=== PATIENT | male | born 1970 | race Caucasian/White ===

== ENCOUNTER 2025-05-06 16:12 | Inpatient (IN) | payer OTHER, SELFPAY ==
[2025-05-06] VITALS (49 sets, daily range): BP systolic 100–200; BP diastolic 37–123; BMI 37.1; BMI 37.3
--- NOTE | 2025-05-06 13:43 | ED.GENMED ---
History of Present Illness
General
Chief Complaint: Chest Pain
Time Seen by Provider: 05/06/25 13:26
History of Present Illness
History of Present Illness:
54-year-old male with no significant past medical history presents to the emergency department for evaluation of exertional chest pain occurring for the past 2 days. Notes that yesterday he first developed symptoms while walking several miles
through [place] but felt it was related to the heat however today states he walked '100 to 200 yards' before symptoms began. The symptoms rapidly resolve when he rests. Currently no pain at present. Has previously been evaluated by
cardiology as an outpatient and has stated history of normal echocardiogram and stress test approximately 3 to 4 years ago but this was outside the [facility] system and I do not have access to records. Denies any recent fevers or chills. No
shortness of breath or coughing.
Review of Systems
Review of Systems
Allergies reviewed?: Yes
All Other Systems: ROS reviewed and negative except as documented in HPI and ROS
Phy Exam
Physical Exam
Physical Exam:
GEN: Well appearing, NAD, WDWN
HEENT: Oral mucosa moist, no scleral icterus
Cardiac: Regular rate And rhythm, no murmurs
Lung: No respiratory distress, no tachypnea, Lungs clear to auscultation bilaterally
MSK: No gross deformity or injuries
Skin: Good color, no pallor or jaundice, no rashes
Neuro: AO x3, moves all extremities freely
Psych: Calm, cooperative
Scores
Heart Score for Chest Pain Patients
STEMI patient?: No
History: Highly Suspicious
ECG: Nonspecific Repolarization
Age: >45 - <65 years
Risk Factors: 1 or 2 Risk Factors
Troponin: >/= 3 x Normal Limit
Heart Score for Chest Pain Patients: 7
Heart Score Risk: 72.7 % MACE over next 6 weeks
Course
Orders/Labs/Results
Orders:
Orders
05/06/25 12:05
EKG [Electrocardiogram (*1)] Urgent
Reason for Study: Chest Pain
EKG- Treatment ONCE
05/06/25 13:42
CR Chest - 2 Views Urgent
Comment:
Reason For Exam: chest pain
05/06/25 14:18
Complete Blood Count/No Diff Urgent
Comprehensive Metabolic Panel Urgent
Troponin I Urgent
05/06/25 15:08
PTT Urgent
Comment: Obtain baseline before beginning heparin infusion if not already collected
Aspirin Chewable [Low Strength Aspirin] 324 mg PO NOW STA
Heparin 4,000 units IV NOW STA
Nursing to Place Non Medication Order As Directed
Physician Order: PTT 6 hours after initial start of Heparin infusion
Above order entered?: Yes
05/06/25 15:15
Heparin 03683 Units/250 ml 25,000 units in 250 ml IV PER PROTOCOL
Weight to be used for heparin protocol in kilograms (kg):: 104.326
Protocol:: Cardiac Tx/Acute Coronary
PTT Goal Range to be used:: PTT 73 to 111 seconds
Order type:: Initial
INITIAL Infusion Dose (UNITS/KG/hr) & then follow protocol:: 15 units/kg/hr
Infusion Dose in UNITS/hr & then follow protocol (UNITS/hr):: 1,500
INFUSION RATE in mL/hr & then follow protocol (mL/hr):: 15
PTT less than or equal to 64 seconds:: Increase rate by 200 units/hr (+ 2 mL/hr)
PTT 64.1 to 72.9 seconds:: Increase rate by 100 units/hr (+ 1 mL/hr)
PTT 73 to 111 seconds:: Target Range. No change in rate.
PTT 111.1 to 130.9 seconds:: Decrease rate by 100 units/hr (- 1 mL/hr)
PTT 131 to 199.9 seconds:: HOLD for 1 hr. Then decrease rate by 200 units/hr (- 2 mL/hr)
PTT greater than or equal to 200 seconds:: HOLD for 2 hrs & Notify Provider. Then decrease by 200 units/hr (-
2 mL/hr)
Lab follow-up:: Each change, PTT q6h until 2 consecutive are therapeutic. Then PTT
daily.
Abnormal Lab Results
05/06/25
14:18
Creatinine 0.6 L mg/dL
(0.7-1.3)
Glucose 169 H mg/dl
(70-99)
AST 74 H U/L
(17-59)
ALT 70 H U/L
(0-50)
Troponin I 2.570 H* ng/ml
05/06/25 14:18
05/06/25 14:18
Vital Signs
Initial and Last Documented VS:
Initial Vital Signs
Temp Pulse Resp BP Pulse Ox
98.5 F 94 18 168/123 96
05/06/25 12:06 05/06/25 12:06 05/06/25 12:06 05/06/25 12:06 05/06/25 12:06
Last Documented Vital Signs
Temp Pulse Resp BP Pulse Ox
98.6 F 89 19 173/98 95
05/06/25 14:21 05/06/25 14:22 05/06/25 14:22 05/06/25 14:21 05/06/25 14:22
MDM/Problems Addressed
MDM/Problems Addressed:
Patient found to have severely elevated troponin suggestive of NSTEMI. No active pain at present. Will admit to the hospitalist service for further management
Comment
Comment:
EKG independently interpreted by me shows normal sinus rhythm with changes compatible with LVH laterally
*Pulse Oximetry
SaO2: 96
Oxygen Mode of Delivery: Room air
Patient hypoxic: no
*Critical Care Note
Total Time (30-74mins, 75-104mins- exclusive of procedures): 30 minutes
comment:
Critical care time: 30 min
Critical care time was exclusive of: Separately billable procedures, treating other patients, and teaching time
Critical care was necessary to treat or prevent imminent or life-threatening deterioration of the following conditions: NSTEMI
Critical care time spent personally by me on the following activities:
[x] Review of old charts
[x] Obtaining history from patient or surrogate
[x] Ordering and review of the laboratory studies
[x] Ordering and review of radiographic studies
[x] Ordering and performing treatments and interventions
[x] Patient patient's response to treatment
[x] Development of treatment plan with patient or surrogate
ED Attending Note
-
Portions of this chart may have been created with voice recognition software.� Occasional wrong word or��sound alike� substitutions may have occurred due to the inherent limitations of voice recognition software.
Discharge Plan
Departure
Patient Disposition: Admit
Date of Disposition: 05/06/25
Time of Disposition: 15:20
Admit to: IVU
Presentation/result/management discussed w/ accepting MD/DO: Hospitalist
Discharge Problem:
Non-ST elevation KS (NSTEMI)
Prescriptions:
No Action
No Current Medications
0
Referrals:
UNKNOWN - PT NOT,INTERVIEWE [Family Provider]
Interventions
Interventions:
*Risk Screen - Suicide Last Done: 05/06/25 12:06
*General Assessment Last Done: 05/06/25 12:06
*Neglect/Abuse Screening Last Done: 05/06/25 14:22
*ED- Fall Risk Assessment Last Done: 05/06/25 14:22
*ED COVID-19 Vaccine History Last Done: 05/06/25 14:22
ED- Cardiac Assessment Last Done: 05/06/25 14:22
Discharge Date and Time
Print Language: IVORIAN
[2025-05-06 14:31] LABS: Hematocrit 44.0 % (39.0-52.0); Hemoglobin 15.3 g/dL (13.0-18.0); Mean Corp Hgb Conc. 34.8 g/dL (33.0-37.0); Mean Corpuscular Volume 81.2 fL (80.0-94.0); Platelet Count 153 10^3/uL (130-400); Red Cell Dist. Width 12.8 % (11.5-14.5)
[2025-05-06 14:52] LABS: ALT (SGPT) 70 U/L (0-50); AST (SGOT) 74 U/L (17-59); Albumin 4.7 g/dl (3.5-5.0); Alkaline Phosphatase 66 U/L (38-126); Blood Urea Nitrogen 14 mg/dl (9-20); Calcium 9.4 mg/dl (8.4-10.2); Carbon Dioxide 27 mmol/L (22-30); Chloride 107 mmol/L (98-107); Estimated Creatinine Clearance > 125 ml/min; Glucose 169 mg/dl (70-99); Potassium 4.1 mmol/L (3.5-5.1); Sodium 139 mmol/L (135-145); Total Protein 7.3 g/dl (6.3-8.2); eGFR > 60.00
[2025-05-06 15:08] LABS: Troponin I 2.570 ng/ml
[2025-05-06] MEDS: LOW STRENGTH ASPIRIN 324 MG PO (15:20)
[2025-05-06] MEDS: HEPARIN 4000 UNITS IV (15:20)
[2025-05-06] MEDS: HEPARIN 25000 UNITS/250 ML IV (15:23)
[2025-05-06 15:33] LABS: APTT 29.7 Sec (23.4-35.0)
--- NOTE | 2025-05-06 16:03 | HPS.HSE ---
Family Physician
-
Family Physician: INTERVIEWE UNKNOWN - PT NOT
Chief Complaint
-
Chest pain, shortness of breath
History of Present Illness
54-year-old male with history of obesity came to the hospital with exertional chest pain and shortness of breath. Per patient his symptoms started 2 days ago. Denies any sick contacts. Denies any fever, chills. Denies any abdominal pain, nausea,
vomiting, constipation. Per patient he did had stress test done 3 to 4 years ago which was normal. Per patient his symptoms resolves with rest. Currently denies any discomfort.
Medical History
Past Medical History
Past Medical History: Reports None
Past Surgical History: Reports None
Social History
Tobacco: Non-smoker
Alcohol: None
Family History
Family History: Not pertinent
Allergies / Home Medications
Allergies reflects when Allergies were last updated in [facility].
Home Medications with original date entered in [facility]
Allergy/Medication List:
Allergies
Allergy/AdvReac Type Severity Reaction Status Date / Time
No Known Allergies Allergy Verified 05/06/25 12:05
Home Medications
CoQ-10 1 cap PO NOON 05/06/25
cholecalciferol (vitamin D3) 1 tab PO NOON 05/06/25
naproxen sodium 220 mg tablet (Aleve) 440 mg PO BID PRN mild pain 05/06/25
therapeutic multivitamin 1 tab PO NOON 05/06/25
Review of Systems
-
History Source: Patient
A 12 point ROS was completed and negative except as noted: Yes
Cardiac: Reports Chest Pain
Physical Exam
Vital Signs
Vital Signs
Temp Pulse Resp BP Pulse Ox
98.6 F 89 19 173/98 95
05/06/25 14:21 05/06/25 14:22 05/06/25 14:22 05/06/25 14:21 05/06/25 14:22
Physical Exam
General: Well Nourished and No Apparent Distress
HEENT: NormoCephalic, Anicteric and Moist mucous membranes
Respiratory: Clear and Non Labored Respirations; No Wheezes
Cardiac: S1/S2 and Regular Rhythm
Breast: Deferred by me
GI: Soft, Non Tender, Non Distended and Normal Bowel Sounds
Rectal: Deferred by Provider
Genito-urinary: No Bautista
Musculoskeletal: No Edema
Neuro: Awake, Alert, Oriented and AO x 3
Psych: Calm and Intact Judgment/Insight
Laboratory Results
-
05/06/25 14:18
Laboratory Results
APTT 29.7 Sec (23.4-35.0) 05/06/25 15:16
Total Bilirubin 0.9 mg/dl (0.2-1.3) 05/06/25 14:18
AST 74 U/L (17-59) H 05/06/25 14:18
ALT 70 U/L (0-50) H 05/06/25 14:18
Alkaline Phosphatase 66 U/L (38-126) 05/06/25 14:18
Troponin I 2.570 ng/ml H* 05/06/25 14:18
Data Reviewed
-
Lab Data: Labs Reviewed by me, Discussed with Physician, Discussed with Patient and Discussed with Family
Impression/Plan
-
Chest pain, dyspnea on exertion likely secondary to NSTEMI
Admit to IVU
Full dose aspirin given, start heparin drip. Continue with heparin drip
Cardiology consulted
Check echo
will need cardiac catheterization, defer to cardiology
Trend serial troponin and EKG
Check A1c, lipid profile
Lopressor
Elevated LFTs
Likely secondary to NSTEMI
Monitor
Obesity
DVT prophylax
Heparin
Full code
I spent a total of 76 minutes with the patient or on the floor. More than 50% of this time involved counseling and coordination of care.
--- NOTE | 2025-05-06 17:00 | EDRN ---
this RN called the receiving IVU nurse Wanda BARR and gave verbal report
[2025-05-06] MEDS: LOPRESSOR 12.5 MG PO ×2 (18:17→20:42)
[2025-05-06] MEDS: LOPRESSOR 5 MG IV (18:44)
--- NOTE | 2025-05-06 19:16 | PTCARENOTE ---
Received patient from the ED at 1800. IV heparin infusing at 1500 units/hr. Patient denies any chest pain or sob since arriving to the hospital. Oriented to the room and plan of care. BP elevated 194/107, patient received PO dose of metoprolol as
ordered. TT to Dr. Miller who ordered an additional 5mg IV lopressor which was given. EKG done and second troponin sent to the lab. Patient instructed to call with any complaints of chest pain, call lay in reach, family at the bedside.
[2025-05-06 19:21] LABS: Troponin I 2.880 ng/ml
[2025-05-06] MEDS: NITROGLYCERIN PREMIX 250 IV (20:23)
[2025-05-06] MEDS: TYLENOL 650 MG PO (20:58)
--- NOTE | 2025-05-06 21:12 | CON.CAR ---
Consultation
Consultation Request
Date/Time Consultation Requested: 05/06/2025
Date/Time Consultation Performed: 05/06/2025
Requesting Provider: Dr. Miller
Performing Provider: Dr. Hughes
Reason for Consultation: Chest pain/NSTEMI
Medical History
-
Chief Complaint: Chest pain
History of Present Illness:
54-year-old male with untreated hypertension, obesity, and family history of heart disease (mother and father) presenting with chest pain. The patient states that he was walking around with his family in [place] and began to experience
midsternal chest pressure and dyspnea 2 days ago. Due to recurrence of symptoms, patient presented to the ER. The chest pain occurs with exertion and is alleviated with rest. He denies palpitations, syncopal events, or lower extremity swelling.
The patient presented with hypertensive emergency; peak blood pressure values of 190/123 mmHg.
Past Medical History
Past Medical History: HTN (Untreated)
Past Surgical History: Orthopedic (Scoliosis correction surgery at the age of 13)
Social History
Tobacco: Non-Smoker
Alcohol: None
Drug: None
Personal:
Living: With Family
Family History
Family History: CAD (Mother had CAD, father had CHF and a pacemaker)
Allergies / Home Medications
Allergy/AdvReac Type Severity Reaction Status Date / Time
No Known Allergies Allergy Verified 05/06/25 12:05
�Medication �Instructions �Recorded �Confirmed �Type
CoQ-10 1 cap PO NOON 05/06/25 05/06/25 History
cholecalciferol (vitamin D3) 1 tab PO NOON 05/06/25 05/06/25 History
naproxen sodium 220 mg tablet 440 mg PO BID PRN mild pain 05/06/25 05/06/25 History
(Aleve)
therapeutic multivitamin 1 tab PO NOON 05/06/25 05/06/25 History
Review of Systems
-
History Source: Patient
All other systems: Negative unless noted
Physical Exam
Vital Signs
Temp Pulse Resp BP Pulse Ox
98.1 F 87 20 162/97 97
05/06/25 17:43 05/06/25 21:10 05/06/25 17:43 05/06/25 21:10 05/06/25 17:43
Lab Results
05/06/25 16:00
05/06/25 14:18
Troponin I 2.880 ng/ml H* 05/06/25 18:39
Physical Exam
General: No Apparent Distress and Comfortable
HEENT: Anicteric
Respiratory: Clear
Cardiac: S1/S2 and Regular Rhythm
Breast: N/A
GI: Soft
Rectal: Deferred by Provider
Musculoskeletal: No Edema
Skin: Warm and Dry
Neuro: AO x 3
Psych: Calm
Impression / Plan
-
54-year-old male with untreated hypertension, obesity, and family history of heart disease (mother and father) presenting with chest pain. The patient states that he was walking around with his family in [place] and began to experience
midsternal chest pressure and dyspnea 2 days ago. Due to recurrence of symptoms, patient presented to the ER. The chest pain occurs with exertion and is alleviated with rest. He denies palpitations, syncopal events, or lower extremity swelling.
The patient presented with hypertensive emergency; peak blood pressure values of 190/123 mmHg.
CAD/NSTEMI
- Cardiac troponin 2.570--> 2.880
- Stat bedside echocardiogram revealed normal LVEF and no obvious wall motion abnormalities; possible mild basal inferior hypokinesis cannot be excluded.
- Continue heparin drip.
- Will start a nitroglycerin drip.
- Has been given full-dose aspirin.
- Will start rosuvastatin 20 mg daily.
- Will place on Toprol-XL 25 mg daily.
- Check lipid panel in AM.
- Check hemoglobin A1c in AM.
- Patient will undergo cardiac catheterization; timing yet to be determined--case discussed with Interventional Cardiology.
- supervisor sample preparation.
- NPO after midnight, in case patient needs to go to the [facility].
Hypertensive emergency:
- Nitroglycerin drip as above.
- Will start lisinopril 10 mg daily.
- Toprol-XL 25 mg daily as above.
Obesity:
- Weight loss and regular exercise recommended.
Data Reviewed
-
EKG: Tracing Personally Visualized and interpreted (Sinus rhythm at 90 bpm with LVH with repolarization abnormality; septal infarct.)
Radiology: Report Reviewed by me (Chest x-ray: No acute cardiopulmonary abnormality)
Labs: Labs Reviewed by me, Discussed with Physician (Primary Hospitalist), Discussed with Nurse, Discussed with Patient and Discussed with Family ( and daughter at bedside)
--- NOTE | 2025-05-06 21:14 | PTCARENOTE ---
Notified Dr. Hughes of EKG changes on 1823 serial EKG as well as increase in troponin to 2.880, BP also elevated (SBP 190's) Pt. denied any chest pain/discomfort. Dr. Hughes came to bedside to evaluate & bedside echo initiated. Nitro gtt
ordered and started. EKG repeated per Dr. Hughes showing STEMI. - pt. still chest pain free. Dr. Hughes notified of EKG results and case discussed with interventionalist by him, no need to activate clinical laboratory technologist at this time. Currently titrating
nitro to meet BP parameters. Pt only. complaining of a headache for which Tylenol was effective. Latest EKG not reading STEMI anymore; shown to Dr. Hughes - no need to repeat until AM unless pt. has chest pain. Pt. resting in bed quietly.
[2025-05-06] MEDS: ZESTRIL 10 MG PO (21:36)
[2025-05-06 21:48] LABS: APTT 72.3 Sec (23.4-35.0)
[2025-05-06 22:09] LABS: Troponin I 2.700 ng/ml
[2025-05-07] VITALS (40 sets, daily range): BP systolic 98–174; BP diastolic 37–94; BMI 37.3
[2025-05-07 04:45] LABS: Hematocrit 42.3 % (39.0-52.0); Hemoglobin 14.3 g/dL (13.0-18.0); Mean Corp Hgb Conc. 33.8 g/dL (33.0-37.0); Mean Corpuscular Volume 82.1 fL (80.0-94.0); Nucleated Red Blood Cells % 0 % (-); Platelet Count 156 10^3/uL (130-400); Red Cell Dist. Width 12.7 % (11.5-14.5)
[2025-05-07 04:55] LABS: APTT 96.1 Sec (23.4-35.0)
[2025-05-07 05:43] LABS: Troponin I 2.050 ng/ml
[2025-05-07] MEDS: TYLENOL 650 MG PO ×2 (05:46→20:57)
[2025-05-07] MEDS: HEPARIN 25000 UNITS/250 ML IV ×2 (05:47→20:54)
--- NOTE | 2025-05-07 05:55 | PTCARENOTE ---
Pt. complained of first right lower arm tingling/ 'sort of numbness' and then bilateral finger tingling at 0405. BP 136/55, HR 60's-70's, pulse ox 95% RA. No chest pain. Nitro on and running at 30 mcg/min (ordered to stay at this rate earlier by
EDOUARD Marie). Pt. had no other symptoms. Neuro check WNL. Ed notified of symptoms and instructed to increase nitro gtt to first 40 mcg/min and then 50 mcg/min. Dose increased as ordered, SBP low 100's-120's. Pt. currently reports tingling is
much improved but still mildly present in bilateral fingers.
[2025-05-07 05:59] LABS: ALT (SGPT) 66 U/L (0-50); AST (SGOT) 71 U/L (17-59); Albumin 4.2 g/dl (3.5-5.0); Alkaline Phosphatase 64 U/L (38-126); Blood Urea Nitrogen 15 mg/dl (9-20); Calcium 9.1 mg/dl (8.4-10.2); Carbon Dioxide 22 mmol/L (22-30); Chloride 106 mmol/L (98-107); Estimated Creatinine Clearance > 125 ml/min; Glucose 172 mg/dl (70-99); HDL Cholesterol 37 mg/dl; LDL Cholesterol, Calculated 141 mg/dl; Potassium 4.2 mmol/L (3.5-5.1); Sodium 136 mmol/L (135-145); Total Protein 6.6 g/dl (6.3-8.2); Very Low Density Lipoprotein 49 mg/dl (0-30); eGFR > 60.00
[2025-05-07] MEDS: ZESTRIL 10 MG PO (09:11)
[2025-05-07] MEDS: LOW STRENGTH ASPIRIN 81 MG PO (09:11)
[2025-05-07] MEDS: TOPROL XL 25 MG PO ×2 (09:11→23:14)
[2025-05-07] MEDS: FLUSH (NSS) 1 FLUSH IV (09:12)
--- NOTE | 2025-05-07 10:22 | PTCARENOTE ---
Patient assisted this morning from the bathroom to the chair. Denies any chest pain or sob, states tingling in his fingers is 95% gone. IV heparin infusing at 1600 units/hr. NTG gtt was infusing at 50mcg/min, given AM dose of meds and BP much more
controlled. Patient seen by Dr. Hughes and ok to begin tapering NTG gtt. Plan for cardiac cath tomorrow, patient aware and encouraged to order breakfast. Call lay in reach.
[2025-05-07 10:26] LABS: Glycohemoglobin (HgbA1c) 8.7 % (4.0-5.6)
[2025-05-07 11:10] LABS: APTT 93.0 Sec (23.4-35.0)
--- NOTE | 2025-05-07 11:15 | W.PN.CD ---
Today's Communication / Plan
-
- Continue heparin drip.
- Wean nitroglycerin drip.
- Continue aspirin.
- Started on rosuvastatin 40 mg daily.
- Started on Toprol-XL 25 mg daily.
- Patient will undergo cardiac catheterization tomorrow morning.
- NPO after midnight.
- Hemoglobin A1c 8.7%; treatment/management as per primary team.
Impression / Plan
-
54-year-old male with untreated hypertension, obesity, and family history of heart disease (mother and father) presenting with chest pain. The patient states that he was walking around with his family in [place] and began to experience
midsternal chest pressure and dyspnea 2 days ago. Due to recurrence of symptoms, patient presented to the ER. The chest pain occurs with exertion and is alleviated with rest. He denies palpitations, syncopal events, or lower extremity swelling.
The patient presented with hypertensive emergency; peak blood pressure values of 190/123 mmHg.
CAD/NSTEMI
- Cardiac troponin 2.570--> 2.880--> 2.700--> 2.050
- Echocardiogram revealed normal LVEF; possible mild basal inferior hypokinesis cannot be excluded.
-Denies recurrent angina at this time.
- Continue heparin drip.
- Wean nitroglycerin drip.
- Continue aspirin.
- Started on rosuvastatin 40 mg daily.
- Started on Toprol-XL 25 mg daily.
- Patient will undergo cardiac catheterization tomorrow morning.
- monitoring and evaluation advisor.
- NPO after midnight.
Hypertensive emergency:
- Blood pressure now controlled.
- Wean off nitroglycerin drip.
- Started on lisinopril 10 mg daily.
- Continue Toprol-XL 25 mg daily as above.
Hyperlipidemia: Untreated
- Total cholesterol 227, LDL 141, HDL 37, VLDL 49, triglycerides 246.
- Started on rosuvastatin 40 mg daily; goal LDL is less than 55.
Diabetes: New official diagnosis
- Hemoglobin A1c 8.7%.
- Treatment/management as per primary team.
Obesity:
- Weight loss and regular exercise recommended.
Physical Exam
Vital Signs/Labs
Vital Signs
Temp Pulse Resp BP Pulse Ox
98.2 F 79 20 108/74 95
05/07/25 07:06 05/07/25 09:11 05/07/25 07:06 05/07/25 09:11 05/07/25 07:06
05/06/25 05/07/25 05/08/25
06:59 06:59 06:59
Actual Weight 104.9 kg
05/07/25 04:32
05/07/25 04:32
APTT 96.1 Sec (23.4-35.0) H 05/07/25 04:32
Triglycerides 246 mg/dl (10-149) H 05/07/25 04:32
LDL Cholesterol, Calc 141 mg/dl 05/07/25 04:32
VLDL Cholesterol, Calc 49 mg/dl (0-30) H 05/07/25 04:32
HDL Cholesterol 37 mg/dl 05/07/25 04:32
LAB Results
05/06/25 05/06/25 05/06/25
14:18 18:39 21:24
Troponin I 2.570 H* 2.880 H* 2.700 H*
05/07/25 05/07/25
04:32 06:00
Troponin I 2.050 H* Cancelled
Physical Exam
Constitutional: No acute distress and Comfortable
EENT: Anicteric and Moist mucous membranes
Cardiovascular: Rhythm & rate is regular, Pedal edema is absent, Systolic murmur absent and S1S2 is normal
Respiratory: Respiratory effort normal and Lungs clear to auscul.
GI: Soft
Neuro/Psych: AO x 3
Other: Skin (Warm, dry, intact)
Data Reviewed
-
Date of Service: May 07, 2025
EKG: Tracing Personally Visualized and interpreted (Telemetry: Sinus rhythm)
Echo: Tracing Personally Visualized and interpreted (Normal LVEF 60-65%)
Medical Tests (PFT, Pathology etc): Discussed with Physician (Primary Hospitalist), Discussed with Nurse and Discussed with Patient
Labs: Labs Reviewed by me
--- NOTE | 2025-05-07 11:58 | W.PN.HOSP.TC ---
Today's Communication/Plan
-
Monitor vital signs see plan
N.p.o. past midnight for cardiac cath tomorrow
Continue heparin drip
Wean nitro drip
Continue lisinopril, Toprol
Insulin sliding scale, Accu-Cheks
Assessment / Plan
Assessment / Plan
General: Well Nourished and No Apparent Distress
HEENT: NormoCephalic, Anicteric and Moist mucous membranes
Respiratory: Clear and Non Labored Respirations; No Wheezes
Cardiac: S1/S2 and Regular Rhythm
GI: Soft, Non Tender, Non Distended and Normal Bowel Sounds
Genito-urinary: No Bautista
Musculoskeletal: No Edema
Neuro: Awake, Alert, Oriented and AO x 3
Psych: Calm and Intact Judgment/Insight
Chest pain, dyspnea on exertion likely secondary to NSTEMI
cw heparin drip. ASA
Cardiology following
Echo 05/06 with preserved EF however possible basal inferior hypokinesis
Cardiac cath 05/08. N.p.o. past midnight
Check A1c, lipid profile
Lopressor
Trop peaked 2.8
Hypertensive on admission, now on nitro drip. Wean
Also started on metoprolol
Hypertensive emergency
Blood pressure now improving on nitro drip, wean nitro drip
Continue Toprol, lisinopril
Newly diagnosed diabetes mellitus
A1c 8.7, diabetes education
Accu-Chek, insulin/scale
Will need p.o. meds prior to discharge
Hyperlipidemia
Now started rosuvastatin
Elevated LFTs
Likely secondary to NSTEMI
Monitor
Obesity
DVT prophylax
Heparin
Full code
I spent a total of 52 minutes with the patient or on the floor. More than 50% of this time involved counseling and coordination of care.
Anticipated Discharge: 24 - 48 hours
Subjective/Interval History
-
Date of Service: May 07, 2025
denies sob
Objective Data
-
Labs:
Laboratory Results
05/07/25 05/07/25
04:32 10:48
WBC 5.9
Hgb 14.3
Hct 42.3
Plt Count 156
APTT 96.1 H 93.0 H
Sodium 136
Potassium 4.2
Chloride 106
Carbon Dioxide 22
BUN 15
Creatinine 0.6 L
Glucose 172 H
Calcium 9.1
Total Bilirubin 0.8
AST 71 H
ALT 66 H
Alkaline Phosphatase 64
Vital Signs:
Vital Signs
Temp Pulse Resp BP Pulse Ox
98.7 F 79 20 108/74 97
05/07/25 11:55 05/07/25 09:11 05/07/25 11:55 05/07/25 09:11 05/07/25 11:55
I&O
05/06/25 05/07/25 05/08/25
06:59 06:59 06:59
Intake Total 240 / 240
Output Total 400 / 400
Balance -160 / -160
[2025-05-07] MEDS: CRESTOR 40 MG PO (12:26)
--- NOTE | 2025-05-07 12:33 | PTCARENOTE ---
Patient's HgA1C resulted at 8.7. Patient notified of result and meaning and for need to have accu checks AC and HS with [facility], development educator consulted.
--- NOTE | 2025-05-07 14:39 | PTCARENOTE ---
NTG tapered to off as per order and ok with Dr. Hughes. BP presently 121/67, denies any chest pain or sob, IV heparin infusing at therapeutic level, 1600 units/hr. Patient sitting oob in the chair, family in visiting.
[2025-05-07 16:50] LABS: Glucose - Point of Care 194 mg/dl (70-99)
[2025-05-07] MEDS: NOVOLOG FLEXPEN-LOW RESISTANCE 1 UNITS SC (18:22)
[2025-05-07 21:13] LABS: Glucose - Point of Care 245 mg/dl (70-99)
[2025-05-08] VITALS (24 sets, daily range): BP systolic 129–194; BP diastolic 50–97; BMI 37.4
--- NOTE | 2025-05-08 02:57 | PTCARENOTE ---
Pt. in NSR on the monitor, denies any chest pain. Heparin infusing at 1600 units/hr. BP coming back up post nitro being weaned off on day shift, 174/84 at 2300. CV- PA Ed Breann notified, order for additional Toprol 25 mg obtained and given.
Pt. for cardiac cath later this morning, NPO, plan of care discussed with pt. Currently resting quietly.
[2025-05-08 03:55] LABS: Hematocrit 43.0 % (39.0-52.0); Hemoglobin 14.7 g/dL (13.0-18.0); Mean Corp Hgb Conc. 34.2 g/dL (33.0-37.0); Mean Corpuscular Volume 81.3 fL (80.0-94.0); Nucleated Red Blood Cells % 0 % (-); Platelet Count 149 10^3/uL (130-400); Red Cell Dist. Width 12.7 % (11.5-14.5)
[2025-05-08 04:01] LABS: APTT 96.4 Sec (23.4-35.0)
[2025-05-08] MEDS: APRESOLINE 10 MG IV (04:03)
[2025-05-08 04:35] LABS: ALT (SGPT) 57 U/L (0-50); AST (SGOT) 49 U/L (17-59); Albumin 4.4 g/dl (3.5-5.0); Alkaline Phosphatase 69 U/L (38-126); Blood Urea Nitrogen 14 mg/dl (9-20); Calcium 9.2 mg/dl (8.4-10.2); Carbon Dioxide 25 mmol/L (22-30); Chloride 108 mmol/L (98-107); Estimated Creatinine Clearance > 125 ml/min; Glucose 194 mg/dl (70-99); Potassium 4.3 mmol/L (3.5-5.1); Sodium 138 mmol/L (135-145); Total Protein 6.8 g/dl (6.3-8.2); eGFR > 60.00
--- NOTE | 2025-05-08 05:57 | PTCARENOTE ---
BP still running high after additional Toprol dose: 194/50, 183/65, - order for hydralazine 10 mg IV obtained and given with BP going down to 169/89. Pt. is chest pain free. CV-PA Ed Breann aware, no further medication to be given at this time.
[2025-05-08] MEDS: LOW STRENGTH ASPIRIN 81 MG PO (07:56)
[2025-05-08] MEDS: TYLENOL 650 MG PO (07:56)
[2025-05-08] MEDS: ZESTRIL 10 MG PO (07:56)
[2025-05-08] MEDS: TOPROL XL 25 MG PO (08:54)
--- NOTE | 2025-05-08 09:00 | PTCARENOTE ---
PT AAOx3 w/o complaints of pain; NSR on monitor VSS; RA clear lung sounds; GI and wnl; heparin GTT runnnig waiting for cardiac cath; PT ambulatory & independent in room
[2025-05-08] MEDS: NOVOLOG FLEXPEN-LOW RESISTANCE SC ×2 (09:22→17:01)
--- NOTE | 2025-05-08 11:39 | PN.DE.MGMTRT ---
Insulin Management
- -
05/08/2025: Diabetes Management Consult
54 year old male admitted with chest pain. PMH: CAD/NSTEMI, HTN, HLD, Obesity and new on set T2DM. A1C 8.7%, Cr 0.6, eGFR >60
Pt is awake, alert, oriented, sitting up in chair, offers no complaints. States he has not seen a doctor in years. He has just completed Diabetes Education for monitor instructions with the Diabetes RN. He is currently NPO for cardiac cath today.
Pre-dinner glucose was 194, up to 245@ HS, down to 194 venous @ 3:34 AM. No POC obtained this morning, pre-lunch glucose was 205, pt received 2 units of corrective insulin.
Will start Lantus 15 units @ HS and AC NovoLog 3 units, Cont low corrective while NPO.
Will cont to follow and switch to combination oral regimen and basal insulin at completion of testing and Cardiac cath.
Diabetes History
- -
Type of Diabetes: 2 requiring insulin
Pre-Admission Diabetes Regimen
05/08/25
03:34
Creatinine 0.6 L
Lab Results
Hemoglobin A1c 8.7 % (4.0-5.6) H 05/07/25 04:32
Insulin Pump Settings
IP Diabetes Regimen
05/07/25 05/07/25 05/08/25
16:49 21:12 03:34
Glucose 194 H
POC Glucose 194 H 245 H
Meal type: Breakfast
Meal type: Lunch
Amount consumed: 100%
Patient Education
[2025-05-08] MEDS: NOVOLOG FLEXPEN-LOW RESISTANCE 2 UNITS SC (11:53)
[2025-05-08 11:56] LABS: Glucose - Point of Care 205 mg/dl (70-99)
--- NOTE | 2025-05-08 12:05 | W.PN.CD ---
Today's Communication / Plan
-
Cardiac Catheterization today to clarify coronary anatomy.
D/C metoprolol.
Start carvedilol 6.25 mg BID.
Impression / Plan
-
Impression/Plan: 54-year-old male with untreated hypertension, obesity, and family history of heart disease (mother and father) admitted with hypertensive emergency and NSTEMI.
#CAD/NSTEMI
-Acute, threat to life.
-Cardiac troponin 2.570--> 2.880--> 2.700--> 2.050
-Echocardiogram revealed normal LVEF; possible mild basal inferior hypokinesis cannot be excluded.
-Cardiac catheterization to clarify coronary anatomy today.
-Continue aspirin, heparin gtt, nitro gtt, rosuvastatin.
-Change metoprolol to carvedilol 6.25 mg BID.
#Hypertensive emergency:
-Acute.
-Blood pressure initially controlled, now hypertensive again.
-Wean off nitroglycerin drip.
-Continue lisinopril.
-D/C metoprolol and start carvedilol 6.25 mg BID.
#Hyperlipidemia:
-Chronic, untreated.
-Total cholesterol = 227, LDL = 141, HDL = 37, triglycerides = 246.
-Continue rosuvastatin 40 mg daily; goal LDL < 55.
#Diabetes:
-New diagnosis.
-Hemoglobin A1c 8.7%.
-We will assess need for GLP-1 as an outpatient.
#Obesity:
-Weight loss and regular exercise recommended.
Subjective/Interval History:
Blood pressure remains high, but without chest pain.
HR 80-101.
BP initially improved, now climbing back to 170-190 mmHg.
Hydralazine given.
DATA:
TTE, 05/06/2025:
CONCLUSIONS
LV ejection fraction is 60-65%, by visual assessment. Possible basal inferior
hypokinesis.
Normal right ventricular size and function.
No significant valvular disease.
No prior study available for comparison.
Physical Exam
Vital Signs/Labs
Vital Signs
Temp Pulse Resp BP Pulse Ox
36.8 C 101 18 174/79 96
05/08/25 10:58 05/08/25 07:56 05/08/25 10:58 05/08/25 07:56 05/08/25 10:58
05/07/25 05/08/25 05/09/25
11:59 11:59 11:59
Actual Weight 104.9 kg 105.1 kg
05/08/25 03:34
05/08/25 03:34
APTT 96.4 Sec (23.4-35.0) H 05/08/25 03:34
Triglycerides 246 mg/dl (10-149) H 05/07/25 04:32
LDL Cholesterol, Calc 141 mg/dl 05/07/25 04:32
VLDL Cholesterol, Calc 49 mg/dl (0-30) H 05/07/25 04:32
HDL Cholesterol 37 mg/dl 05/07/25 04:32
LAB Results
05/06/25 05/06/25 05/06/25
14:18 18:39 21:24
Troponin I 2.570 H* 2.880 H* 2.700 H*
05/07/25 05/07/25
04:32 06:00
Troponin I 2.050 H* Cancelled
Physical Exam
Constitutional: No acute distress and Comfortable
EENT: Anicteric and Moist mucous membranes
Cardiovascular: Rhythm & rate is regular, Pedal edema is absent, JVD pressure is normal, S1S2 is normal and Murmur/rub/gallop absent
Respiratory: Respiratory effort normal, Lungs clear to auscul., Wheeze Absent, Crackles Absent and Rhonchi Absent
GI: Soft, Distention absent, Flat, Non tender and Normal bowel sounds
Neuro/Psych: AO x 3
Data Reviewed
-
Date of Service: May 08, 2025
Medical Decision Making: Reviewed Test Results, Independent Historian Assessment and Test Interpretation
EKG: Tracing Personally Visualized and interpreted and Report Reviewed by me
Echo: Report Reviewed by me
X-Ray/CT/US/MRI/NUC/PET: Image Personally Visualized and interpreted and Report Reviewed by me
Labs: Labs Reviewed by me
[2025-05-08] MEDS: HEPARIN 25000 UNITS/250 ML IV (12:20)
--- NOTE | 2025-05-08 12:22 | W.PN.HOSP.TC ---
Today's Communication/Plan
-
Monitor vital signs see plan
Diabetes DU[employer] POLISHER evaluation
N.p.o. for Today
Continue with metoprolol, lisinopril
On heparin drip
Assessment / Plan
Assessment / Plan
General: Well Nourished and No Apparent Distress
HEENT: NormoCephalic, Anicteric and Moist mucous membranes
Respiratory: Clear and Non Labored Respirations; No Wheezes
Cardiac: S1/S2 and Regular Rhythm
GI: Soft, Non Tender, Non Distended and Normal Bowel Sounds
Genito-urinary: No Bautista
Musculoskeletal: No Edema
Neuro: Awake, Alert, Oriented and AO x 3
Psych: Calm and Intact Judgment/Insight
Chest pain, dyspnea on exertion likely secondary to NSTEMI
cw heparin drip. ASA
Cardiology following
Echo 05/06 with preserved EF however possible basal inferior hypokinesis
Cardiac cath 05/08. N.p.o
Check A1c, lipid profile
Lopressor
Trop peaked 2.8
Hypertensive on admission, weaned off nitro drip
Also started on metoprolol
Hypertensive emergency
Blood pressure now improving on nitro drip, wean nitro drip
Continue Toprol, lisinopril
Newly diagnosed diabetes mellitus
A1c 8.7, diabetes education
Accu-Chek, insulin/scale
Will need p.o. meds prior to discharge, diabetes [employer] POL[employer]ER consult
Hyperlipidemia
Now started rosuvastatin
Elevated LFTs
Likely secondary to NSTEMI
Monitor
Obesity
DVT prophylax
Heparin
Full code
I spent a total of 51 minutes with the patient or on the floor. More than 50% of this time involved counseling and coordination of care.
Anticipated Discharge: 24 - 48 hours
Subjective/Interval History
-
Date of Service: May 08, 2025
Denies shortness of breath
Objective Data
-
Labs:
Laboratory Results
05/08/25
03:34
WBC 7.8
Hgb 14.7
Hct 43.0
Plt Count 149
APTT 96.4 H
Sodium 138
Potassium 4.3
Chloride 108 H
Carbon Dioxide 25
BUN 14
Creatinine 0.6 L
Glucose 194 H
Calcium 9.2
Total Bilirubin 0.9
AST 49
ALT 57 H
Alkaline Phosphatase 69
Vital Signs:
Vital Signs
Temp Pulse Resp BP Pulse Ox
98.2 F 101 18 174/79 96
05/08/25 10:58 05/08/25 07:56 05/08/25 10:58 05/08/25 07:56 05/08/25 10:58
I&O
05/07/25 05/08/25 05/09/25
06:59 06:59 06:59
Intake Total 240 / 240 722 / 722
Output Total 400 / 400
Balance -160 / -160 722 / 722
--- NOTE | 2025-05-08 12:30 | PTCARENOTE ---
no change from previous assessment
--- NOTE | 2025-05-08 13:01 | PTCARENOTE ---
05/08/2025
I met with Octavio and his to review diabetes management. He is inpatient with NSTEMI, newly diagnosed with diabetes with an HbA1c of 8.7%.
I educated on physiology of T2D, organ damage, managing with medications, monitoring BG, nutrition, activity, sleep and managing stress. I reinforced signs of hyperglycemia, hypoglycemia and hypoglycemia protocol; BS parameters and recommended HbA1c
goals, glucometer and CGM instructions, glucose tracker, medic alert bracelet and outpatient DSME program. Written material provided.
He admits to being very sedentary, works at home sitting at a desk most of the day. He also states he has a high fat diet.
I educated and reviewed using Contour Next glucometer, member acknowledged understanding with a self demonstration of checking BS with BS reading at 209 during visit. Provided patient with a Contour Next sample kit.
Encouraged patient to follow up with his PCP for post d/c appointment and to monitor medication and blood glucose levels. He does not have a PCP, I referred him back to his health insurance for list of in network providers. Provided list of
endocrinologists if desired, to contact insurance company to verify in network status. Requested prescription sent to pharmacy for test strips and lancets for back up SMBG. Patient verbalized understanding.
--- NOTE | 2025-05-08 13:17 | CM ---
Addendum entered by Deysi Caballero 05/08/25 16:19:
Good Rx coupon from [employer] can get Triagrelor for $31.49 a month.
Addendum entered by Deysi Caballero 05/08/25 16:15:
Received consult to russ Brilinta 90 mg po bid. Brilinta is not on his formulary and will need a prior auth. The telephone number for prior auth is [phone] or you can use cover my meds.
Original Note:
Reviewed chart. Met with Mr. Tabor to review discharge plans. He states prior to admission he resides with his spouse and daughter in a two story home without any steps to enter. He states he has a full flight of steps to get to bedroom/full
bathroom. He states he has a powder room on the first floor. He states prior to admission he was independent with ambulation and adls. He states he does not have any DME in the home. He states he has a prescription plan and uses [facility].
Medical work-up in progress. The discharge plan is to return home with his spouse and daughter when medically stable.
[2025-05-08 15:01] LABS: ACT-LR - POC 334 Seconds (116-155)
[2025-05-08 15:29] LABS: ACT-LR - POC 358 Seconds (116-155)
--- NOTE | 2025-05-08 15:48 | ITS.CL.ANGIO ---
Retail Route Supervisor - Angioplasty
Angioplasty
Procedure Report:
CARDIAC CATHETERIZATION REPORT
Date of Procedure: 05/08/2025
Referring: Zac Hughes M.D.
INDICATION: Non-ST elevation myocardial infarction.
PROCEDURE:
1. Left heart catheterization.
2. Coronary angiography.
3. Successful IFR of the mid LAD.
4. Successful PCI of the proximal margin of OM 1.
A total of 102 minutes of procedural/moderate sedation was utilized. An independent medical instrument cable fabricator was present to assist with and help manage the patient's level of consciousness and physiologic status.
ACCESS:
1. 6 Lithuanian right rate artery using a modified Seldinger technique delete.
CATHETERS:
1. 5 Lithuanian JR4.
2. 5 Lithuanian JL 3.5.
3. 6 Lithuanian EBU 3.75 guiding catheter.
HEMODYNAMIC DATA
Weight (kg): 104.8
AO (s/d/x, mmHg): 136/90/110
LV (s/x mmHg): 136/14
LEFT VENTRICULOGRAPHY: Not performed.
CORONARY ANGIOGRAPHY
Dominance: Left.
Left Main: Normal size, trifurcating vessel. There is no coronary artery disease.
LAD: Normal size vessel giving rise to 2 significant diagonals. There is a 70% lesion in the mid vessel, in between D1 and D2.
Ramus: Small, 1.5 mm vessel. There is no coronary artery disease.
Circumflex: Large size, dominant vessel giving rise to 1 obtuse marginal followed by several smaller posterolateral branches and an LPDA. There is a 90% lesion in the proximal margin of OM1 at the bifurcation of the OM1 into 2 daughter vessels.
RCA: Small size, nondominant vessel. There is no coronary artery disease.
INTERVENTION(S)
1. Successful IFR of the 70% mid LAD lesion, demonstrating nonocclusive disease (IFR = 0.91).
2. Successful PCI of the 90% lesion in the proximal margin of OM1 extending into the smaller daughter branch due to an inaccessibility of the larger branch due to angulation, jailing the larger branch with a residual 70% ostial lesion but PARISH-3
flow.
Narrative:
The decision was made to perform physiologic testing. The diagnostic catheter was removed over a wire and exchanged for a(n) 6 Lithuanian EBU 3.75 guiding catheter. The guiding catheter was advanced into the ascending aorta and seated in the left main
coronary artery. Additional heparin was given to obtain an ACT greater than 250 seconds. An iFR wire was zeroed outside of the body, then inserted into the guiding sheath. The wire was advanced and the transducer was normalized just outside of the
guiding catheter tip. The wire was advanced into the mid LAD, beyond the 70% lesion. Three iFR measurements were taken. The lesion was determined to be nonocclusive (0.91).
The decision was made to proceed with percutaneous coronary intervention. A BMW wire was advanced into the smaller, medial daughter branch of OM1. A power turn flex wire was advanced into OM1 in an attempt to wire the larger lateral branch. In
spite of several attempts including the support of a quick cross microcatheter, the wire would not enter the lateral branch. The power turn flex wire was withdrawn and a whisper wire was advanced through the quick cross microcatheter and the
procedure was repeated, again not allowing the wire to pass into the lateral branch of OM1. Angiography was performed, showing occlusion of OM1, suggesting that repeated wiring attempts had led to a potential focal dissection. The decision was
made to abandon the lateral branch of OM1 for the time being. The quick cross microcatheter and the whisper wire were withdrawn. The 90% OM1 lesion was predilated with a 2.0 x 12 semi-compliant balloon to 12 deborah, restoring PARISH-3 flow into the
obtuse marginal. Another attempt was made to wire the lateral branch of the obtuse marginal with similar results. At this point, we elected to stop our efforts to wire the lateral branch and secure the proximal OM1.
A Medtronic [place] Laporte 2.5 x 15 drug-eluting stent was advanced. The stent was deployed at 9 atmospheres. The stent balloon was removed.
The decision was made to perform intracoronary imaging. An IVUS catheter was advanced through the guiding catheter and into the ostium of the artery. Ring down was performed once the imaging crystal was no longer inside of the guiding catheter. The
IVUS catheter was advanced into the left circumflex but would not take the turn into the obtuse marginal. The IVUS catheter was withdrawn.
A 2.5 x 12 noncompliant balloon was advanced into the stent and the stent was postdilated to 12 atmospheres. Angiography was performed demonstrating roman catholic of PARISH-3 flow throughout the entire obtuse marginal including into the jailed lateral
branch. There was a new, 70% lesion in the ostium of the lateral branch, though PARISH-3 flow remained. We made a brief attempt to wire the lateral branch with the BMW wire, however the wire would not currently pass. The whisper wire was
reattempted, again not passing into the obtuse marginal. Given her significant use of contrast and radiation, the decision was made to terminate the procedure at this time and medically manage the remainder of his coronary disease.
Angiography was performed in orthogonal views, confirming good stent expansion and an excellent angiographic result. The coronary wire was withdrawn and the guide was disengaged from the artery. The catheter was removed over a standard J-wire.
Closure Device: Vascular band.
Radiation (mGy): 3006
DAP (cm2.Gy): 122
Fluoroscopy time (minutes): 21.4
CONCLUSIONS
1. Left dominant circulation with a nonocclusive, 70% mid LAD lesion (IFR = 0.91) and a 90% lesion in the proximal margin of OM1 at the bifurcation of OM1 into 2 daughter vessels, status post successful PCI of OM1 into the smaller daughter branch
due to the severe angulation of the larger branch, with jailing of the larger branch and a residual 70% in the ostium of the vessel due to plaque shift but PARISH-3 flow.
2. Mildly elevated filling pressures (LVEDP = 14 mmHg at 104.8 kg).
RECOMMENDATIONS:
1. Expectant management after cardiac catheterization via right radial approach.
2. Limited weight bearing on the right wrist for one week.
3. Dual antiplatelet therapy with aspirin and ticagrelor for at least 1 year, followed by aspirin indefinitely.
4. Aggressive secondary prevention with high-dose, high potency statin. Goal LDL <55.
5. OMT/GDMT as hemodynamics will tolerate.
6. Referral to cardiac rehab.
Copy to: Zac Hughes M.D.
Miko Oliveira DO, FACC, FACP
[2025-05-08 16:41] LABS: Glucose - Point of Care 148 mg/dl (70-99)
[2025-05-08] MEDS: NOVOLOG FLEXPEN 3 UNITS SC (16:59)
--- NOTE | 2025-05-08 17:00 | PTCARENOTE ---
no change from previous assessment; PT returned form 3ml removed from TR band
[2025-05-08] MEDS: COREG 6.25 MG PO (19:44)
[2025-05-08] MEDS: LIPITOR 80 MG PO (19:44)
[2025-05-08 22:29] LABS: Glucose - Point of Care 137 mg/dl (70-99)
[2025-05-08] MEDS: LANTUS 0.15 UNITS SC (22:35)
[2025-05-09] VITALS (9 sets, daily range): BP systolic 113–146; BP diastolic 65–85; BMI 36.7
--- NOTE | 2025-05-09 02:05 | PTCARENOTE ---
Rec'd at change of shift. SR on TELE monitor, VSS, and SR on TELE monitor. Pt denies any pain or discomfort and R radial band weaned off as ordered. PT verbalizes understanding of activity restriction. See MAR and flowchart for full pt care and
assessment. Pt resting with call lay in reach and plan of care ongoing.
[2025-05-09 04:29] LABS: Hematocrit 41.8 % (39.0-52.0); Hemoglobin 14.3 g/dL (13.0-18.0); Mean Corp Hgb Conc. 34.2 g/dL (33.0-37.0); Mean Corpuscular Volume 82.0 fL (80.0-94.0); Nucleated Red Blood Cells % 0 % (-); Platelet Count 165 10^3/uL (130-400); Red Cell Dist. Width 12.8 % (11.5-14.5)
[2025-05-09 04:52] LABS: ALT (SGPT) 48 U/L (0-50); AST (SGOT) 42 U/L (17-59); Albumin 4.1 g/dl (3.5-5.0); Alkaline Phosphatase 60 U/L (38-126); Blood Urea Nitrogen 12 mg/dl (9-20); Calcium 9.2 mg/dl (8.4-10.2); Carbon Dioxide 24 mmol/L (22-30); Chloride 106 mmol/L (98-107); Estimated Creatinine Clearance > 125 ml/min; Glucose 161 mg/dl (70-99); HDL Cholesterol 38 mg/dl; LDL Cholesterol, Calculated 134 mg/dl; Potassium 3.9 mmol/L (3.5-5.1); Sodium 137 mmol/L (135-145); Total Protein 6.6 g/dl (6.3-8.2); Very Low Density Lipoprotein 28 mg/dl (0-30); eGFR > 60.00
[2025-05-09 07:08] LABS: Glucose - Point of Care 138 mg/dl (70-99)
[2025-05-09] MEDS: NOVOLOG FLEXPEN 3 UNITS SC ×3 (08:49→17:55)
[2025-05-09] MEDS: NOVOLOG FLEXPEN-LOW RESISTANCE SC ×3 (08:50→17:55)
[2025-05-09] MEDS: ZESTRIL 10 MG PO (08:53)
[2025-05-09] MEDS: LOW STRENGTH ASPIRIN 81 MG PO (08:53)
[2025-05-09] MEDS: COREG 6.25 MG PO ×2 (08:53→19:56)
[2025-05-09] MEDS: BRILINTA 90 MG PO ×2 (08:53→19:56)
--- NOTE | 2025-05-09 09:20 | PN.DE.MGMTRT ---
Insulin Management
- -
05/09/2025: Diabetes Management Consult Follow up
Patient admitted 05/06 with chest pain. PMH: CAD/NSTEMI, HTN, HLD, Obesity and new on set T2DM. A1C 8.7%, Cr 0.6, eGFR >60
05/09 Patient is awake alert and oriented able to discuss diabetes care. States he has not been to the doctor in 4 or 5 years and at that time he was told he had pre diabetes and was recommended to lose weight. Last evening received Lantus 15
units @ HS fasting glucose 138 today. Will continue 15 units lantus @ HS novolog 3 units AC with low corrective insulin.
Will have diabetes nurse educator return to instruct on insulin administration and provide nurse with home needles so patient can practice self injection.
Discussed with nurse
Will follow
Diabetes History
- -
Type of Diabetes: 2 requiring insulin
Pre-Admission Diabetes Regimen
05/09/25
04:02
Creatinine 0.7
Lab Results
Hemoglobin A1c 8.7 % (4.0-5.6) H 05/07/25 04:32
Insulin Pump Settings
IP Diabetes Regimen
05/08/25 05/08/25 05/08/25
11:52 16:40 22:27
Glucose
POC Glucose 205 H 148 H 137 H
05/09/25 05/09/25
04:02 07:06
Glucose 161 H
POC Glucose 138 H
Meal type: Dinner
Meal type: Breakfast
Amount consumed: 100%
Patient Education
--- NOTE | 2025-05-09 09:59 | CM ---
Reviewed chart. Called [facility] in [facility], [place], [place], [facility], and [facility], finally found it in stock at [facility] on [address]. N.P. to send script to [facility] on [address]. Gave him the Good RX Coupon and
directions to get there. He is agreeable to going to [facility] on [address] to get the medications. Prior to admission he resides with his spouse and daughter in two story home without any steps to enter. He has a full flight of steps to get
to bedroom/full bathroom. He has a powder room on the first floor. Prior to admission he was independent with ambulation and adls. He does not have any DME in the home. He has a prescription plan. Medical work-up in progress. The discharge plan
is to return home with his spouse and daughter when medically stable.
[2025-05-09 11:40] LABS: Glucose - Point of Care 142 mg/dl (70-99)
--- NOTE | 2025-05-09 12:45 | W.PN.HOSP.TC ---
Today's Communication/Plan
-
Monitor vital signs
see plan
Continue with aspirin and Brilinta
Continue Coreg, lisinopril
Discussed with diabetes VISUAL MANAGER, continue with Lantus and aspart
Insulin teaching
Possible discharge tomorrow
Assessment / Plan
Assessment / Plan
General: Well Nourished and No Apparent Distress
HEENT: NormoCephalic, Anicteric and Moist mucous membranes
Respiratory: Clear and Non Labored Respirations; No Wheezes
Cardiac: S1/S2 and Regular Rhythm
GI: Soft, Non Tender, Non Distended and Normal Bowel Sounds
Genito-urinary: No Bautista
Musculoskeletal: No Edema
Neuro: Awake, Alert, Oriented and AO x 3
Psych: Calm and Intact Judgment/Insight
Chest pain, dyspnea on exertion likely secondary to NSTEMI
cw heparin drip. ASA
Cardiology following
Echo 05/06 with preserved EF however possible basal inferior hypokinesis
Status post cardiac cath 05/08 with 70% mid LAD lesion, 90% lesion in the proximal margin of OM1 status post PCI. Now on Brilinta, aspirin. Dual antiplatelet therapy with aspirin and Brilinta for at least 1 year followed by aspirin indefinitely
Statin
Coreg
Trop peaked 2.8
Hypertensive on admission, weaned off nitro drip
Also started on metoprolol
Hypertensive emergency
Blood pressure now improving on nitro drip, wean nitro drip
Continue Toprol, lisinopril
Newly diagnosed diabetes mellitus
A1c 8.7, diabetes education
Accu-Chek, insulin/scale
Diabetes VISUAL MANAGER following, started on Lantus. Insulin teaching ongoing. Patient currently does not have any primary care provider. Highly instructed him to get PCP as soon as possible and he will need close follow-up
Hyperlipidemia
Now started Lipitor
Elevated LFTs
Likely secondary to NSTEMI
Monitor
Obesity
DVT prophylax
Heparin
Full code
Anticipated Discharge: Within 24 hours
Subjective/Interval History
-
Date of Service: May 09, 2025
Denies dyspnea
Objective Data
-
Labs:
Laboratory Results
05/09/25 05/09/25
04:01 04:02
WBC 7.3
Hgb 14.3
Hct 41.8
Plt Count 165
Sodium 137
Potassium 3.9
Chloride 106
Carbon Dioxide 24
BUN 12
Creatinine 0.7
Glucose 161 H
Calcium 9.2
Total Bilirubin 1.2
AST 42
ALT 48
Alkaline Phosphatase 60
Vital Signs:
Vital Signs
Temp Pulse Resp BP Pulse Ox
98.2 F 86 18 143/73 92
05/09/25 10:23 05/09/25 09:00 05/09/25 10:23 05/09/25 08:53 05/09/25 10:23
I&O
05/08/25 05/09/25 05/10/25
06:59 06:59 06:59
Intake Total 722 / 722 480 / 480
Balance 722 / 722 480 / 480
--- NOTE | 2025-05-09 13:55 | PTCARENOTE ---
05/09/2025 DIABETES EDUCATION CONSULT
I met with patient, his spouse and daughter. Educated on long acting and short acting insulin, mechanism of action, timing of dose, peak effectiveness, and duration of action. Provided education on proper storage and injection technique, patient
provided repeat demonstration without difficulty. Provided pen needles with RN to assist patient with injections in the future while inpatient. Discussed normal target glucose ranges and a monitoring schedule 15 minutes before each meal when
prescribed Novolog, and preprandial AM and/or bedtime as recommended by . Mr. Tabor states he is awaiting a call back from a PCP for new patient appointment.
--- NOTE | 2025-05-09 14:13 | W.PN.CD ---
Today's Communication / Plan
-
Followup arranged
Importance of DAPT reviewed
Cardiolgoy will sign off
Impression / Plan
-
Impression/Plan: 54-year-old male with untreated hypertension, obesity, and family history of heart disease (mother and father) admitted with hypertensive emergency and NSTEMI.
#CAD/NSTEMI
-Acute, improved
-Cardiac troponin 2.570--> 2.880--> 2.700--> 2.050
-Echocardiogram revealed normal LVEF; possible mild basal inferior hypokinesis cannot be excluded.
-Cardiac catheterization noted and PCI performed
-Continue aspirin, Brilinta
-Change metoprolol to carvedilol 6.25 mg BID.
HTN improved
#Hyperlipidemia:
-Chronic, untreated.
-Total cholesterol = 227, LDL = 141, HDL = 37, triglycerides = 246.
-Continue rosuvastatin 40 mg daily; goal LDL < 55.
#Diabetes:
-New diagnosis.
-Hemoglobin A1c 8.7%.
-We will assess need for GLP-1 as an outpatient.
#Obesity:
-Weight loss and regular exercise recommended.
Subjective/Interval History:
Feels well.
DATA:
Cath/PCI 05/08/2025
CONCLUSIONS
1. Left dominant circulation with a nonocclusive, 70% mid LAD lesion (IFR = 0.91) and a 90% lesion in the proximal margin of OM1 at the bifurcation of OM1 into 2 daughter vessels, status post successful PCI of OM1 into the smaller daughter branch
due to the severe angulation of the larger branch, with jailing of the larger branch and a residual 70% in the ostium of the vessel due to plaque shift but PARISH-3 flow.
2. Mildly elevated filling pressures (LVEDP = 14 mmHg at 104.8 kg).
TTE, 05/06/2025:
CONCLUSIONS
LV ejection fraction is 60-65%, by visual assessment. Possible basal inferior
hypokinesis.
Normal right ventricular size and function.
No significant valvular disease.
No prior study available for comparison.
Physical Exam
Vital Signs/Labs
Vital Signs
Temp Pulse Resp BP Pulse Ox
98.2 F 85 18 113/76 92
05/09/25 10:23 05/09/25 14:00 05/09/25 10:23 05/09/25 10:24 05/09/25 10:23
05/08/25 05/09/25 05/10/25
06:59 06:59 06:59
Actual Weight 105.1 kg 103.1 kg
05/09/25 04:01
05/09/25 04:02
APTT 96.4 Sec (23.4-35.0) H 05/08/25 03:34
Triglycerides 143 mg/dl (10-149) 05/09/25 04:02
LDL Cholesterol, Calc 134 mg/dl 05/09/25 04:02
VLDL Cholesterol, Calc 28 mg/dl (0-30) 05/09/25 04:02
HDL Cholesterol 38 mg/dl 05/09/25 04:02
LAB Results
05/06/25 05/06/25 05/06/25
14:18 18:39 21:24
Troponin I 2.570 H* 2.880 H* 2.700 H*
05/07/25 05/07/25
04:32 06:00
Troponin I 2.050 H* Cancelled
Physical Exam
Constitutional: No acute distress
EENT: Anicteric
Cardiovascular: Rhythm & rate is regular
Respiratory: Respiratory effort normal and Lungs clear to auscul.
GI: Soft and Distention absent
Neuro/Psych: AO x 3
Other: Cath Site (normal)
Data Reviewed
-
Date of Service: May 09, 2025
[2025-05-09 17:29] LABS: Glucose - Point of Care 127 mg/dl (70-99)
[2025-05-09] MEDS: LIPITOR 80 MG PO (17:56)
--- NOTE | 2025-05-09 18:02 | PTCARENOTE ---
patient able to draw up insulin and administer his injection.
--- NOTE | 2025-05-09 20:54 | PTCARENOTE ---
Rec'd pt at change of shift. AAO*3, VSS, and SR on TELE monitor. Pt with order to shower, TELE monitor paused, and pt assisted into showers after protecting IV access. Pt given education on DAPT medications and verbalizes understanding. Pt
resting with call lay in reach. See MAR and flowchart for full pt care and assessment.
[2025-05-09 22:13] LABS: Glucose - Point of Care 241 mg/dl (70-99)
[2025-05-09] MEDS: LANTUS 0.15 UNITS SC (22:18)
[2025-05-10 03:07] VITALS: BP 126/69
[2025-05-10 03:08] VITALS: BP 126/69; BMI 36.7
[2025-05-10 03:51] LABS: Hematocrit 40.6 % (39.0-52.0); Hemoglobin 13.5 g/dL (13.0-18.0); Mean Corp Hgb Conc. 33.3 g/dL (33.0-37.0); Mean Corpuscular Volume 83.4 fL (80.0-94.0); Nucleated Red Blood Cells % 0 % (-); Platelet Count 150 10^3/uL (130-400); Red Cell Dist. Width 12.9 % (11.5-14.5)
[2025-05-10 04:20] LABS: ALT (SGPT) 49 U/L (0-50); AST (SGOT) 45 U/L (17-59); Albumin 4.1 g/dl (3.5-5.0); Alkaline Phosphatase 58 U/L (38-126); Blood Urea Nitrogen 21 mg/dl (9-20); Calcium 9.4 mg/dl (8.4-10.2); Carbon Dioxide 26 mmol/L (22-30); Chloride 107 mmol/L (98-107); Estimated Creatinine Clearance > 125 ml/min; Glucose 142 mg/dl (70-99); Potassium 3.8 mmol/L (3.5-5.1); Sodium 138 mmol/L (135-145); Total Protein 6.4 g/dl (6.3-8.2); eGFR > 60.00
[2025-05-10 07:02] VITALS: BP 137/91
[2025-05-10] MEDS: LOW STRENGTH ASPIRIN 81 MG PO (07:44)
[2025-05-10] MEDS: COREG 6.25 MG PO (07:44)
[2025-05-10] MEDS: ZESTRIL 10 MG PO (07:45)
[2025-05-10] MEDS: BRILINTA 90 MG PO (07:45)
[2025-05-10] MEDS: NOVOLOG FLEXPEN 3 UNITS SC (07:51)
[2025-05-10] MEDS: NOVOLOG FLEXPEN-LOW RESISTANCE 1 UNITS SC (07:51)
[2025-05-10 07:55] LABS: Glucose - Point of Care 175 mg/dl (70-99)
--- NOTE | 2025-05-10 09:36 | PN.DE.MGMTRT ---
Insulin Management
- -
05/10/2025: Diabetes Management Consult Follow up
Patient admitted 05/06 with chest pain. PMH: CAD/NSTEMI, HTN, HLD, Obesity and new on set T2DM. A1C 8.7%, Cr 0.6, eGFR >60
05/08 Cardiac cath with PCI.
05/09 Patient is awake alert and oriented able to discuss diabetes care. States he has not been to the doctor in 4 or 5 years and at that time he was told he had pre diabetes and was recommended to lose weight. HS glucose 241.
05/10 Last evening received Lantus 15 units @ HS fasting glucose 175 today. Diet amended to include 1800 calories. Will increase lantus to 16 units lantus @ HS continue novolog 3 units with breakfast and lunch and 5 units with dinner with low
corrective insulin.
Diabetes nurse educator returned and instructed on insulin administration and provided nurse with home needles so patient can practice self injection.
Discussed with nurse
Will follow
Diabetes History
- -
Type of Diabetes: 2 requiring insulin
Pre-Admission Diabetes Regimen
05/10/25
03:12
Creatinine 0.7
Lab Results
Hemoglobin A1c 8.7 % (4.0-5.6) H 05/07/25 04:32
Insulin Pump Settings
IP Diabetes Regimen
05/09/25 05/09/25 05/09/25
11:34 17:27 22:11
Glucose
POC Glucose 142 H 127 H 241 H
05/10/25 05/10/25
03:12 07:49
Glucose 142 H
POC Glucose 175 H
Meal type: Breakfast
Meal type: Dinner
Meal type: Lunch
Amount consumed: 100%
Amount consumed: 100%
Amount consumed: 100%
Patient Education
--- NOTE | 2025-05-10 10:28 | W.PN.HOSP.TC ---
Today's Communication/Plan
-
Monitor vitals
See plan
Continue with aspirin and Brilinta
Continue Lantus, aspart
Discharge today
Time of discharge 38 minutes
Assessment / Plan
Assessment / Plan
General: Well Nourished and No Apparent Distress
HEENT: NormoCephalic, Anicteric and Moist mucous membranes
Respiratory: Clear and Non Labored Respirations; No Wheezes
Cardiac: S1/S2 and Regular Rhythm
GI: Soft, Non Tender, Non Distended and Normal Bowel Sounds
Genito-urinary: No Bautista
Musculoskeletal: No Edema
Neuro: Awake, Alert, Oriented and AO x 3
Psych: Calm and Intact Judgment/Insight
Chest pain, dyspnea on exertion likely secondary to NSTEMI
Cardiology following
Echo 05/06 with preserved EF however possible basal inferior hypokinesis
Status post cardiac cath 05/08 with 70% mid LAD lesion, 90% lesion in the proximal margin of OM1 status post PCI. Now on Brilinta, aspirin. Dual antiplatelet therapy with aspirin and Brilinta for at least 1 year followed by aspirin indefinitely
Statin
Coreg
Trop peaked 2.8
Hypertensive on admission, weaned off nitro drip
Continue with Coreg
Hypertensive emergency
Blood pressure now improving on nitro drip, wean nitro drip
Continue Coreg, lisinopril
Newly diagnosed diabetes mellitus
A1c 8.7, diabetes education
Accu-Chek, insulin/scale
Diabetes SKIING TEACHER following, started on Lantus, asked. Insulin teaching done and patient comfortable. Patient currently does not have any primary care provider. Highly instructed him to get PCP as soon as possible and he will need close follow-up
Hyperlipidemia
Now started Lipitor
Elevated LFTs
Likely secondary to NSTEMI
Monitor, resolved
Obesity
DVT prophylax
Heparin
Full code
Anticipated Discharge: Today
Subjective/Interval History
-
Date of Service: May 10, 2025
Denies chest pain
Objective Data
-
Labs:
Laboratory Results
05/10/25
03:12
WBC 6.6
Hgb 13.5
Hct 40.6
Plt Count 150
Sodium 138
Potassium 3.8
Chloride 107
Carbon Dioxide 26
BUN 21 H
Creatinine 0.7
Glucose 142 H
Calcium 9.4
Total Bilirubin 1.0
AST 45
ALT 49
Alkaline Phosphatase 58
Vital Signs:
Vital Signs
Temp Pulse Resp BP Pulse Ox
98.2 F 77 20 137/91 95
05/10/25 07:01 05/10/25 07:02 05/10/25 07:01 05/10/25 07:02 05/10/25 07:02
I&O
05/09/25 05/10/25 05/11/25
06:59 06:59 06:59
Intake Total 480 / 480 480 / 480
Balance 480 / 480 480 / 480
--- NOTE | 2025-05-10 10:41 | W.DCSUMMARY ---
Discharge Summary
Discharge Data
Date of Admission: 05/06/25
Date of Discharge: 05/10/25
-
Pending Results: No
Hospital Course
54-year-old male with past medical history of obesity came to the hospital with chest pain and dyspnea exertion consistent with NSTEMI. Patient had an echocardiogram which showed preserved EF however basal inferior hypokinesis. Patient underwent
cardiac catheterization on 05/08 with PCI. Patient was started on aspirin and Brilinta which was continued on discharge. He was also started on statin. For his blood pressure initially he required nitro drip which was able to be weaned off and he
was started on Coreg and lisinopril. On this hospitalization he also had hemoglobin A1c of 8.7 consistent with diabetes mellitus. He was seen by diabetes nurse practitioner and was started on aspart and Lantus. He was comfortable administering
insulin prior to the discharge. Since his symptoms continue to improve, he was then discharged home with instructions to follow-up closely with all his physicians outpatient.
Discharge Plan
-
Patient Disposition: Home (Routine Discharge)
Discharge Diagnosis/Procedures: NSTEMI, s/p angioplasty and stent to Left Circumflex artery
Hypertension
Hyperlipidemia
New onset diabetes mellitus
Diet: As tolerated, Low Sodium and Diabetic, Carb Controlled
Activity: As tolerated
Driving Restrictions: As prior to admission
Bathing Restrictions: None
Other Services: Cardiac Rehab
Activity Restrictions/Additional Instructions:
Please get primary care provider soon as possible
Stand Alone Forms: DC Instructions- Cath/EP Lab
Referrals:
Opal Bains CRNP [Specified Professional Personl, Cardiology] - 05/30/25 8:40 am
Jyothi Rasheed CRNP [Specified Professional Personl, Internal Medicine]
UNKNOWN - PT NOT,INTERVIEWE [Family Provider] - in less than 1 week
Prescriptions:
New
ticagrelor 90 mg tablet
90 mg PO Q12H Qty: 60 11RF
atorvastatin 80 mg Tablet
80 mg PO QPM Qty: 30 0RF
aspirin 81 mg Tablet,Chewable
81 mg PO DAILY Qty: 30 0RF
acetaminophen 325 mg Tablet
650 mg PO Q4HPRN PRN (Reason: headache) Qty: 0 0RF
carvedilol 6.25 mg Tablet
6.25 mg PO BID Qty: 60 0RF
insulin aspart U-100 100 unit/mL (3 mL) Insulin Pen
5 unit SC AC@1630 Qty: 15 0RF
insulin aspart U-100 100 unit/mL (3 mL) Insulin Pen
3 unit SC AC@0800,1130 Qty: 0 0RF
lisinopril 10 mg Tablet
10 mg PO DAILY Qty: 30 0RF
(DME) Contour Next Test Strips Strip
Qty: 200 0RF
Rx Instructions:
As Directed
insulin glargine [Lantus Solostar U-100 Insulin] 100 unit/mL (3 mL) Insulin Pen
16 unit SC HS Qty: 5 0RF
(DME) lancets [Color Lancets] 21 gauge Misc
Qty: 200 0RF
Rx Instructions:
As Directed
(DME) pen needle, diabetic [Queta 2nd Gen Pen Needle] 32 gauge x 5/' Needle
Qty: 200 1RF
Rx Instructions:
As Directed
Continued
therapeutic multivitamin Tablet
1 tab PO NOON
CoQ-10
1 cap PO NOON
cholecalciferol (vitamin D3)
1 tab PO NOON
Discontinued
naproxen sodium [Aleve] 220 mg Tablet
440 mg PO BID PRN (Reason: mild pain)
Discharge Orders:
Discharge Patient (As Directed); Ordered 05/10/25
Ordered By: Travis Miller
Discharge Date and Time
Discharge Date/Time: 05/10/25 13:32
Print Language: TURKMEN
--- NOTE | 2025-05-10 11:07 | CM ---
Reviewed chart. Met with and Mrs. Tabor to review discharge plans. He states is he is feeling well and maybe able to go home soon. Telephone call to [facility] on [address] to confirm his Ticagrelor 90 mg po bid is there and ready to
shredder picker. [facility] confirms medications is there and he can use the [facility]oupon. Reviewed above with them. They are agreeable to going to [facility] on [address] to get his Ticagrelor. Prior to admission he resides with his spouse and
daughter in a two story home without any steps to enter. He has a full flight of steps to get to bedroom/full bathroom.. There is a powder room on the first floor. Prior to admission he was independent with ambulation and adls. He does not have
any DME in the home. He has a prescription plan. Medical work-up in progress. The discharge plan is to return home with his spouse and daughter when medically stable.
[2025-05-10 11:08] VITALS: BP 126/86
[2025-05-10 12:10] LABS: Glucose - Point of Care 162 mg/dl (70-99)
--- NOTE | 2025-05-10 13:07 | PTCARENOTE ---
Patient discharged to home. Discharge teaching provided to patient and spouse, they verbalized understanding. IV and telemetry removed. Patient escorted to main lobby for discharge
== END 2025-05-10 13:32 | disposition home or self-care (01) | DRG 322 ==
LOC: IVU 16:12
PROVIDERS: Internal Medicine Cardiovascular Disease; Physician Assistant; ADMITTING PHYSICIAN Internal Medicine; CONSULT PHYSICIAN Internal Medicine; EMERGENCY PHYSICIAN Student in an Organized Health Care Education/Training Program
PROC: 4A033BC Measurement of Arterial Pressure, Coronary, Percutaneous Approach (ICD-10-PCS; 2025-05-08)
PROC: 027034Z Dilation of Coronary Artery, One Artery with Drug-eluting Intraluminal Device, Percutaneous Approach (ICD-10-PCS; 2025-05-08)
PROC: B2111ZZ Fluoroscopy of Multiple Coronary Arteries using Low Osmolar Contrast (ICD-10-PCS; 2025-05-08)
PROC: 4A023N7 Measurement of Cardiac Sampling and Pressure, Left Heart, Percutaneous Approach (ICD-10-PCS; 2025-05-08)
DX: I21.4 Non-ST elevation (NSTEMI) myocardial infarction (principal); I16.1 Hypertensive emergency; I25.10 Atherosclerotic heart disease of native coronary artery without angina pectoris; I10 Essential (primary) hypertension; E78.5 Hyperlipidemia, unspecified; E11.9 Type 2 diabetes mellitus without complications; E66.9 Obesity, unspecified; Z68.36 Body mass index [BMI] 36.0-36.9, adult; R79.89 Other specified abnormal findings of blood chemistry; Z82.49 Family history of ischemic heart disease and other diseases of the circulatory system
CPT/HCPCS: 71046; 80053; 80061; 82962; 83036; 84484; 85025; 85027; 85347; 85730; 92978; 93005; 93306; 93458; 93799; 96365; 96366; 99152; 99153; 99291; C1725; C1753; C1769; C1874; C9600; Q9967